=== PATIENT | male | born 1965 | race African-American/Black ===

== ENCOUNTER 2018-08-06 01:32 | Emergency (ER) | payer SELFPAY ==
[~2018-08-06] VITALS: Ht 180.3 cm; Wt 81.0 kg
[2018-08-06 03:07] LABS: BASOPHILS % 1.1 % (0.0-2.0); EOSINOPHILS % 0.5 % (0.0-5.0); HEMATOCRIT. 47.5 % (42.0-52.0); HEMOGLOBIN. 15.8 g/dL (14.0-18.0); LYMPHOCYTES % 27.6 % (20.0-50.0); MEAN CORPUSCULAR HEMOGLOBIN 31.3 pg (28.0-32.0); MEAN CORPUSCULAR VOLUME 93.7 fL (80.0-94.0); MEAN PLATELET VOLUME 8.4 fl (7.4-10.4); MONOCYTES % 8.1 % (2.0-8.0); NEUTROPHILS % 62.7 % (40.0-76.0); PLATELET 190 x1000/uL (130-400); RED BLOOD CELL COUNT 5.07 mill/uL (4.7-6.1); RED CELL DISTRIBUTION WIDTH 13.2 % (11.6-14.6)
[2018-08-06 03:14] LABS: CHLORIDE 105 mEq/L (98-107); ETHANOL BLOOD 269 mg/dL
[2018-08-06 04:15] LABS: *AMPHETAMINES SCREEN URINE NEGATIVE (NEGATIVE); *BARBITURATES SCREEN URINE NEGATIVE (NEGATIVE); *BENZODIAZEPINES SCREEN URINE NEGATIVE (NEGATIVE)
[2018-08-06 04:17] LABS: *COCAINE SCREEN URINE NEGATIVE (NEGATIVE); CANNABINOID URINE SCREEN NEGATIVE (NEGATIVE); METHADONE URINE SCREEN NEGATIVE (NEGATIVE); OPIATES URINE SCREEN NEGATIVE (NEGATIVE); PHENCYCLIDINE URINE SCREEN NEGATIVE (NEGATIVE)
[2018-08-06 05:37] VITALS: BP 131/71
== END 2018-08-06 06:03 | disposition home or self-care (01) ==
LOC: ER 01:32
DX: F10.129 Alcohol abuse with intoxication, unspecified (principal); R41.82 Altered mental status, unspecified; Y90.8 Blood alcohol level of 240 mg/100 ml or more
CPT/HCPCS: 36415; 80053; 80305; 82962; 85025; 99284; G0482

== ENCOUNTER 2023-01-08 11:26 | Inpatient (IN) | payer MEDICAID, OTHER ==
[~2023-01-08] VITALS: Ht 195.6 cm; Wt 89.4 kg
[2023-01-08] MEDS ORDERED: ALBUTEROL (0.083%) 2.5MG/3ML NEB HHN STA (11:40)
[2023-01-08] MEDS ORDERED: METHYLPREDNISOLONE SOD SUCC 125 MG/2 ML VIAL IV STA (11:40)
[2023-01-08] MEDS ORDERED: IPRATROPIUM BROMIDE (0.02%) 0.5MG/2.5ML NEB HHN STA (11:40)
[2023-01-08 12:16] LABS: BASOPHILS % 0.4 % (0.0-2.0); EOSINOPHILS % 0.4 % (0.0-5.0); LYMPHOCYTES % 29.7 % (20.0-50.0); MEAN CORPUSCULAR HEMOGLOBIN 29.7 pg (28.0-32.0); MEAN CORPUSCULAR VOLUME 91.2 fL (80.0-94.0); MEAN PLATELET VOLUME 7.9 fl (7.4-10.4); MONOCYTES % 8.5 % (2.0-8.0); PLATELET 203 x1000/uL (130-400); RED BLOOD CELL COUNT 5.38 mill/uL (4.7-6.1); RED CELL DISTRIBUTION WIDTH 14.7 % (11.6-14.6)
[2023-01-08 12:20] LABS: CHLORIDE 105 mEq/L (98-107)
[2023-01-08] MEDS ORDERED: KETOROLAC 30MG/ML VIAL IV ONE (14:00)
[2023-01-08] MEDS: METHYLPREDNISOLONE SOD SUCC 125 MG/2 ML VIAL IV SCH ×2 (14:15→20:56)
[2023-01-08] MEDS ORDERED: IPRATROPIUM/ALBUTEROL 0.5-3(2.5)MG/3ML NEB HHN PRN (14:15)
[2023-01-08 14:32] LABS: BG DEOXYHEMOGLOBIN 5.6 % (0.0-5.0); BG METHEMOGLOBIN 0.3 % (0.0-1.5); BG OXYGEN SATURATION 94.3 % (92.0-98.5); BG OXYHEMOGLOBIN 93.1 % (94.0-97.0); BG PCO2 34.3 mmHg (35.0-45.0); BG PO2 69.6 mmHg (75.0-100.0); BG SAMPLE SITE RIGHT RADIAL; BG TOTAL HEMOGLOBIN 16.1 g/dL (12.0-18.0); BG VENT MODE MASK - BIPAP
[2023-01-08] MEDS ORDERED: CEFTRIAXONE 1GM PREMIX 50 ML IV SCH (15:00)
[2023-01-08] MEDS ORDERED: AZITHROMYCIN 500 MG in DEXT 5% WATER 250 ML IV SCH (16:00)
[2023-01-08] MEDS: AZITHROMYCIN 500 MG in DEXT 5% WATER 250 ML IV SCH (16:02)
[2023-01-08 19:50] LABS: INR 1.1; PARTIAL THROMBOPLASTIN TIME 29.2 sec (23.4-31.0); PROTHROMBIN TIME 11.3 sec (9.6-11.0)
[2023-01-08] MEDS: ALBUTEROL (0.083%) 2.5MG/3ML NEB HHN SCH (20:16)
[2023-01-08] MEDS: IPRATROPIUM BROMIDE (0.02%) 0.5MG/2.5ML NEB HHN SCH (20:16)
[2023-01-08 21:00] VITALS: BP 148/101
[2023-01-08] MEDS ORDERED: DEXTROSE 50% WATER 50ML SYRINGE IV PRN (21:45)
[2023-01-08 22:01] VITALS: BP 130/98
[2023-01-08] MEDS: ACETAMINOPHEN 325MG TABLET PO PRN (23:32)
[2023-01-09] VITALS (12 sets, daily range): BP systolic 126–143; BP diastolic 87–112
[2023-01-09] MEDS: DIPHENHYDRAMINE 50MG/ML VIAL IV PRN (00:41)
[2023-01-09] MEDS: ONDANSETRON HCL 4MG/2ML INJ IV PRN ×2 (00:41→09:41)
[2023-01-09] MEDS: ALBUTEROL (0.083%) 2.5MG/3ML NEB HHN SCH ×4 (01:50→21:33)
[2023-01-09] MEDS: IPRATROPIUM BROMIDE (0.02%) 0.5MG/2.5ML NEB HHN SCH ×4 (01:50→21:32)
[2023-01-09] MEDS: METHYLPREDNISOLONE SOD SUCC 125 MG/2 ML VIAL IV SCH ×4 (01:54→21:42)
[2023-01-09 05:50] LABS: HEMATOCRIT. 44.8 % (42.0-52.0); HEMOGLOBIN. 14.6 g/dL (14.0-18.0); MEAN CORPUSCULAR HEMOGLOBIN 29.1 pg (28.0-32.0); MEAN CORPUSCULAR VOLUME 89.3 fL (80.0-94.0); MEAN PLATELET VOLUME 8.6 fl (7.4-10.4); PLATELET 213 x1000/uL (130-400); RED BLOOD CELL COUNT 5.02 mill/uL (4.7-6.1); RED CELL DISTRIBUTION WIDTH 14.1 % (11.6-14.6)
[2023-01-09 05:59] LABS: CHLORIDE 101 mEq/L (98-107)
[2023-01-09] MEDS: ACETAMINOPHEN 325MG TABLET PO PRN ×3 (06:04→16:12)
[2023-01-09] MEDS: BLOOD SUGAR DIAGNOSTIC STRIP TEST SCH ×4 (06:30→21:00)
[2023-01-09] MEDS: INSULIN LISPRO 100 UNITS/ML SUBCUT SCH ×4 (07:00→21:00)
[2023-01-09] MEDS ORDERED: SODIUM BICARBONATE 4% (2.4MEQ) 5ML VIAL IV ONE (08:05)
[2023-01-09 09:38] LABS: PLATELET ESTIMATE NORMAL
[2023-01-09] MEDS ORDERED: NALOXONE HCL 0.4MG/ML VIAL IV PRN (10:45)
[2023-01-09] MEDS: CEFTRIAXONE 1GM PREMIX 50 ML IV SCH (14:59)
[2023-01-09] MEDS: AZITHROMYCIN 500 MG in DEXT 5% WATER 250 ML IV SCH (15:43)
[2023-01-09] MEDS: MORPHINE SULFATE 2 MG/ML CPJ (NOT FOR IM USE) IV PRN ×2 (15:45→22:50)
[2023-01-10] VITALS (9 sets, daily range): BP systolic 120–145; BP diastolic 74–101
[2023-01-10] MEDS: ALBUTEROL (0.083%) 2.5MG/3ML NEB HHN SCH ×2 (02:00→19:54)
[2023-01-10] MEDS: IPRATROPIUM BROMIDE (0.02%) 0.5MG/2.5ML NEB HHN SCH ×2 (02:00→19:54)
[2023-01-10] MEDS: METHYLPREDNISOLONE SOD SUCC 125 MG/2 ML VIAL IV SCH ×4 (02:38→22:35)
[2023-01-10] MEDS: DIPHENHYDRAMINE 50MG/ML VIAL IV PRN (02:44)
[2023-01-10] MEDS: ONDANSETRON HCL 4MG/2ML INJ IV PRN (02:44)
[2023-01-10] MEDS: BLOOD SUGAR DIAGNOSTIC STRIP TEST SCH ×4 (06:30→21:00)
[2023-01-10] MEDS: INSULIN LISPRO 100 UNITS/ML SUBCUT SCH ×4 (07:00→21:00)
[2023-01-10] MEDS: IPRATROPIUM/ALBUTEROL 0.5-3(2.5)MG/3ML NEB HHN SCH ×2 (08:57→14:09)
[2023-01-10] MEDS ORDERED: LORAZEPAM 0.5MG TABLET PO PRN (14:45)
[2023-01-10] MEDS: AZITHROMYCIN 500 MG in DEXT 5% WATER 250 ML IV SCH (15:01)
[2023-01-10] MEDS: MORPHINE SULFATE 2 MG/ML CPJ (NOT FOR IM USE) IV PRN (15:16)
[2023-01-10] MEDS ORDERED: IPRATROPIUM BROMIDE (0.02%) 0.5MG/2.5ML NEB HHN PRN (16:15)
[2023-01-10] MEDS ORDERED: ALBUTEROL (0.083%) 2.5MG/3ML NEB HHN PRN (16:15)
[2023-01-10] MEDS: FAMOTIDINE 20MG TABLET PO SCH (17:47)
[2023-01-10] MEDS: CEFTRIAXONE 1GM PREMIX 50 ML IV SCH (17:47)
[2023-01-10] MEDS: MELATONIN 3MG TABLET PO SCH (21:00)
[2023-01-11] VITALS: BP 135/75
[2023-01-11] MEDS: MORPHINE SULFATE 2 MG/ML CPJ (NOT FOR IM USE) IV PRN ×2 (01:24→11:34)
[2023-01-11] MEDS: METHYLPREDNISOLONE SOD SUCC 125 MG/2 ML VIAL IV SCH ×2 (02:00→08:47)
[2023-01-11] MEDS: IPRATROPIUM BROMIDE (0.02%) 0.5MG/2.5ML NEB HHN SCH ×3 (02:06→20:56)
[2023-01-11] MEDS: ALBUTEROL (0.083%) 2.5MG/3ML NEB HHN SCH ×4 (02:06→20:56)
[2023-01-11 04:00] VITALS: BP 129/84
[2023-01-11 06:36] LABS: HEMATOCRIT. 41.3 % (42.0-52.0); HEMOGLOBIN. 13.5 g/dL (14.0-18.0); MEAN CORPUSCULAR HEMOGLOBIN 29.2 pg (28.0-32.0); MEAN CORPUSCULAR VOLUME 89.1 fL (80.0-94.0); MEAN PLATELET VOLUME 8.8 fl (7.4-10.4); PLATELET 202 x1000/uL (130-400); RED BLOOD CELL COUNT 4.63 mill/uL (4.7-6.1); RED CELL DISTRIBUTION WIDTH 13.8 % (11.6-14.6)
[2023-01-11] MEDS: INSULIN LISPRO 100 UNITS/ML SUBCUT SCH ×4 (07:10→21:34)
[2023-01-11 08:00] VITALS: BP 114/77
[2023-01-11 08:18] LABS: CHLORIDE 102 mEq/L (98-107)
[2023-01-11] MEDS: FAMOTIDINE 20MG TABLET PO SCH ×2 (08:47→17:01)
[2023-01-11] MEDS ORDERED: BENZONATATE 100MG CAPSULE PO PRN (10:00)
[2023-01-11 10:54] LABS: BG BASE EXCESS 1.8 mmol/L (-2.0-2.0); BG CARBOXYHEMOGLOBIN 0.8 % (0.5-1.5); BG HCO3 ACT 25.6 mmol/L (22.0-26.0); BG METHEMOGLOBIN 0.1 % (0.0-1.5); BG OXYGEN SATURATION 88.9 % (92.0-98.5); BG OXYHEMOGLOBIN 88.1 % (94.0-97.0); BG PCO2 37.8 mmHg (35.0-45.0); BG PH 7.449 (7.350-7.450); BG SAMPLE SITE RIGHT RADIAL; BG TOTAL HEMOGLOBIN 15.4 g/dL (12.0-18.0); BG VENT MODE ROOM AIR
[2023-01-11] MEDS: LIDOCAINE 5% PATCH TOP SCH (11:34)
[2023-01-11] MEDS: BLOOD SUGAR DIAGNOSTIC STRIP TEST SCH ×3 (11:58→21:34)
[2023-01-11 12:00] VITALS: BP 141/94
[2023-01-11 13:11] LABS: PLATELET ESTIMATE NORMAL
[2023-01-11] MEDS: METHYLPREDNISOLONE SOD SUCC 40 MG/ML VIAL IV SCH ×2 (14:44→21:28)
[2023-01-11 16:00] VITALS: BP 136/87
[2023-01-11] MEDS: CEFTRIAXONE 1GM PREMIX 50 ML IV SCH (16:02)
[2023-01-11] MEDS: AZITHROMYCIN 500 MG in DEXT 5% WATER 250 ML IV SCH (17:00)
[2023-01-11 20:00] VITALS: BP 152/93
[2023-01-11] MEDS: GUAIFENESIN 600MG ER TABLET PO SCH (21:28)
[2023-01-11] MEDS: MELATONIN 3MG TABLET PO SCH (21:28)
[2023-01-12] VITALS (7 sets, daily range): BP systolic 122–153; BP diastolic 83–105
[2023-01-12] MEDS: ALBUTEROL (0.083%) 2.5MG/3ML NEB HHN SCH ×3 (02:01→14:19)
[2023-01-12] MEDS: IPRATROPIUM BROMIDE (0.02%) 0.5MG/2.5ML NEB HHN SCH ×3 (02:03→14:19)
[2023-01-12 05:42] LABS: HEMATOCRIT. 42.7 % (42.0-52.0); MEAN CORPUSCULAR HEMOGLOBIN 29.2 pg (28.0-32.0); MEAN CORPUSCULAR VOLUME 89.3 fL (80.0-94.0); MEAN PLATELET VOLUME 8.6 fl (7.4-10.4); PLATELET 213 x1000/uL (130-400); RED BLOOD CELL COUNT 4.79 mill/uL (4.7-6.1); RED CELL DISTRIBUTION WIDTH 14.1 % (11.6-14.6)
[2023-01-12] MEDS: BLOOD SUGAR DIAGNOSTIC STRIP TEST SCH ×4 (05:46→21:10)
[2023-01-12] MEDS: METHYLPREDNISOLONE SOD SUCC 40 MG/ML VIAL IV SCH ×3 (06:08→23:22)
[2023-01-12] MEDS: INSULIN LISPRO 100 UNITS/ML SUBCUT SCH ×4 (06:09→22:02)
[2023-01-12 06:45] LABS: CHLORIDE 101 mEq/L (98-107)
[2023-01-12] MEDS: FAMOTIDINE 20MG TABLET PO SCH ×2 (09:59→18:29)
[2023-01-12] MEDS: GUAIFENESIN 600MG ER TABLET PO SCH ×2 (09:59→21:34)
[2023-01-12] MEDS: LIDOCAINE 5% PATCH TOP SCH (10:05)
[2023-01-12] MEDS ORDERED: IPRATROPIUM/ALBUTEROL 0.5-3(2.5)MG/3ML NEB HHN PRN (13:00)
[2023-01-12 13:24] LABS: PLATELET ESTIMATE NORMAL
[2023-01-12] MEDS: CEFTRIAXONE 1GM PREMIX 50 ML IV SCH (15:11)
[2023-01-12] MEDS: AZITHROMYCIN 500 MG in DEXT 5% WATER 250 ML IV SCH (18:30)
[2023-01-12] MEDS: IPRATROPIUM/ALBUTEROL 0.5-3(2.5)MG/3ML NEB HHN SCH (21:09)
[2023-01-12] MEDS: MELATONIN 3MG TABLET PO SCH (21:34)
[2023-01-12] MEDS: MORPHINE SULFATE 2 MG/ML CPJ (NOT FOR IM USE) IV PRN (21:36)
[2023-01-12] MEDS: CLONIDINE 0.1MG TABLET PO PRN (21:37)
[2023-01-13] VITALS: BP 131/96
[2023-01-13] MEDS: IPRATROPIUM/ALBUTEROL 0.5-3(2.5)MG/3ML NEB HHN SCH ×4 (01:31→20:24)
[2023-01-13 04:00] VITALS: BP 141/96
[2023-01-13] MEDS: CLONIDINE 0.1MG TABLET PO PRN (04:51)
[2023-01-13] MEDS: MORPHINE SULFATE 2 MG/ML CPJ (NOT FOR IM USE) IV PRN ×2 (04:53→15:47)
[2023-01-13] MEDS: BLOOD SUGAR DIAGNOSTIC STRIP TEST SCH ×4 (06:48→21:00)
[2023-01-13] MEDS: INSULIN LISPRO 100 UNITS/ML SUBCUT SCH ×3 (06:49→20:58)
[2023-01-13] MEDS: METHYLPREDNISOLONE SOD SUCC 40 MG/ML VIAL IV SCH ×2 (06:57→15:40)
[2023-01-13 08:00] VITALS: BP 136/101
[2023-01-13] MEDS: GUAIFENESIN 600MG ER TABLET PO SCH ×2 (11:21→21:00)
[2023-01-13] MEDS: FAMOTIDINE 20MG TABLET PO SCH ×2 (11:22→17:00)
[2023-01-13] MEDS: LIDOCAINE 5% PATCH TOP SCH (11:25)
[2023-01-13 12:00] VITALS: BP 143/98
[2023-01-13] MEDS: CEFTRIAXONE 1GM PREMIX 50 ML IV SCH (15:40)
[2023-01-13 16:00] VITALS: BP 132/89
[2023-01-13 20:00] VITALS: BP 134/104
[2023-01-13] MEDS: MELATONIN 3MG TABLET PO SCH (21:00)
[2023-01-14] VITALS (11 sets, daily range): BP systolic 82–155; BP diastolic 62–111
[2023-01-14] MEDS: IPRATROPIUM/ALBUTEROL 0.5-3(2.5)MG/3ML NEB HHN SCH ×3 (01:31→21:14)
[2023-01-14] MEDS: BLOOD SUGAR DIAGNOSTIC STRIP TEST SCH ×2 (06:04→21:52)
[2023-01-14] MEDS: INSULIN LISPRO 100 UNITS/ML SUBCUT SCH ×2 (06:25→21:55)
[2023-01-14 06:53] LABS: HEMATOCRIT. 45.1 % (42.0-52.0); HEMOGLOBIN. 14.6 g/dL (14.0-18.0); MEAN CORPUSCULAR VOLUME 89.8 fL (80.0-94.0); MEAN PLATELET VOLUME 8.3 fl (7.4-10.4); PLATELET 224 x1000/uL (130-400); RED BLOOD CELL COUNT 5.02 mill/uL (4.7-6.1); RED CELL DISTRIBUTION WIDTH 14.1 % (11.6-14.6)
[2023-01-14 07:01] LABS: PROTHROMBIN TIME 11.2 sec (9.6-11.0)
[2023-01-14] MEDS ORDERED: BUPIVACAINE HCL/PF 0.25% (2.5MG/ML) 10ML ONE (07:43)
[2023-01-14] MEDS ORDERED: POLYMYXIN B SULFATE 500000 UNITS/VIAL ONE (07:44)
[2023-01-14] MEDS ORDERED: SKIN ADHESIVE 0.7 GM EA TOP ONE (07:46)
[2023-01-14] MEDS ORDERED: TALC 3 GM VIAL IX SCH (08:00)
[2023-01-14] MEDS: LIDOCAINE 5% PATCH TOP SCH (09:00)
[2023-01-14] MEDS: PREDNISONE 20MG TABLET PO SCH (09:00)
[2023-01-14] MEDS: GUAIFENESIN 600MG ER TABLET PO SCH ×2 (09:00→21:52)
[2023-01-14] MEDS: FAMOTIDINE 20MG TABLET PO SCH ×2 (09:00→21:53)
[2023-01-14] MEDS ORDERED: PROPOFOL 200MG/20ML VIAL IV ONE (09:11)
[2023-01-14] MEDS ORDERED: SUCCINYLCHOLINE CHLORIDE 200MG/10ML IV ONE (09:11)
[2023-01-14] MEDS ORDERED: DEXAMETHASONE 4MG/ML 1ML VIAL ONE (09:11)
[2023-01-14] MEDS ORDERED: NEOSTIGMINE METHYLSULFATE 1MG/ML 10 ML VIAL ONE ×2 (09:11→10:44)
[2023-01-14] MEDS ORDERED: ONDANSETRON HCL 4MG/2ML INJ ONE (09:11)
[2023-01-14] MEDS ORDERED: ROCURONIUM BROMIDE 10MG/ML VIAL 5ML IV ONE ×2 (09:11→10:12)
[2023-01-14] MEDS ORDERED: GLYCOPYRROLATE 0.2 MG/ML 2ML VIAL ONE ×3 (09:12→10:44)
[2023-01-14] MEDS ORDERED: FENTANYL CITRATE/PF 50MCG/ML 2ML VIAL ONE (09:12)
[2023-01-14] MEDS ORDERED: MIDAZOLAM HCL 2 MG/2 ML VIAL ONE (09:12)
[2023-01-14 09:21] LABS: CHLORIDE 100 mEq/L (98-107)
[2023-01-14 09:36] LABS: PHOSPHORUS 2.6 mg/dL (2.5-4.9)
[2023-01-14] MEDS ORDERED: HYDROMORPHONE HCL/PF 2MG/ML CPJ ONE (10:30)
[2023-01-14] MEDS ORDERED: MEPERIDINE HCL/PF 25MG/ML CPJ IV PRN (11:15)
[2023-01-14] MEDS ORDERED: ONDANSETRON HCL 4MG/2ML INJ IV PRN (11:15)
[2023-01-14] MEDS ORDERED: LABETALOL 5MG/ML SYR 20 MG/4 ML SYRINGE IV PRN (11:15)
[2023-01-14 11:41] LABS: BG CARBOXYHEMOGLOBIN 0.9 % (0.5-1.5); BG DEOXYHEMOGLOBIN 2.8 % (0.0-5.0); BG FRACTION INSPIRED OXYGEN 100; BG HCO3 ACT 26.4 mmol/L (22.0-26.0); BG METHEMOGLOBIN 0.4 % (0.0-1.5); BG OXYGEN SATURATION 97.2 % (92.0-98.5); BG OXYHEMOGLOBIN 95.9 % (94.0-97.0); BG PCO2 44.9 mmHg (35.0-45.0); BG PH 7.388 (7.350-7.450); BG SAMPLE SITE RIGHT RADIAL; BG TOTAL HEMOGLOBIN 16.7 g/dL (12.0-18.0); BG VENT MODE MASK - NRB
[2023-01-14] MEDS: HYDROMORPHONE HCL/PF 2MG/ML CPJ IV PRN ×3 (12:06→19:05)
[2023-01-14 12:27] LABS: HEMATOCRIT 50.1 % (42.0-52.0); HEMOGLOBIN 16.5 g/dL (14.0-18.0)
[2023-01-14] MEDS: CLONIDINE 0.1MG TABLET PO PRN (17:39)
[2023-01-14 19:00] LABS: PLATELET ESTIMATE NORMAL
[2023-01-14] MEDS: MELATONIN 3MG TABLET PO SCH (21:52)
[2023-01-14] MEDS: MORPHINE SULFATE 4 MG/ML CPJ (NOT FOR IM USE) IV PRN (22:58)
[2023-01-15] VITALS (48 sets, daily range): BP systolic 120–154; BP diastolic 42–106
[2023-01-15] MEDS: IPRATROPIUM/ALBUTEROL 0.5-3(2.5)MG/3ML NEB HHN SCH ×4 (01:38→20:58)
[2023-01-15] MEDS: MORPHINE SULFATE 4 MG/ML CPJ (NOT FOR IM USE) IV PRN ×6 (01:44→23:40)
[2023-01-15 05:38] LABS: HEMOGLOBIN. 15.8 g/dL (14.0-18.0); MEAN CORPUSCULAR HEMOGLOBIN 29.8 pg (28.0-32.0); MEAN CORPUSCULAR VOLUME 90.3 fL (80.0-94.0); MEAN PLATELET VOLUME 7.8 fl (7.4-10.4); PLATELET 225 x1000/uL (130-400); RED BLOOD CELL COUNT 5.32 mill/uL (4.7-6.1); RED CELL DISTRIBUTION WIDTH 14.3 % (11.6-14.6)
[2023-01-15 05:45] LABS: CHLORIDE 97 mEq/L (98-107)
[2023-01-15 07:21] LABS: PLATELET ESTIMATE NORMAL
[2023-01-15 08:09] LABS: BG BASE EXCESS 4.2 mmol/L (-2.0-2.0); BG CARBOXYHEMOGLOBIN 1.3 % (0.5-1.5); BG DEOXYHEMOGLOBIN 2.2 % (0.0-5.0); BG FRACTION INSPIRED OXYGEN 28; BG HCO3 ACT 29.8 mmol/L (22.0-26.0); BG METHEMOGLOBIN 0.3 % (0.0-1.5); BG OXYGEN SATURATION 97.8 % (92.0-98.5); BG OXYHEMOGLOBIN 96.2 % (94.0-97.0); BG PCO2 47.4 mmHg (35.0-45.0); BG PH 7.416 (7.350-7.450); BG PO2 97.2 mmHg (75.0-100.0); BG SAMPLE SITE RIGHT BRACHIAL; BG TOTAL HEMOGLOBIN 16.9 g/dL (12.0-18.0); BG VENT MODE NASAL CANNULA
[2023-01-15] MEDS: INSULIN LISPRO 100 UNITS/ML SUBCUT SCH ×4 (08:20→21:00)
[2023-01-15] MEDS: BLOOD SUGAR DIAGNOSTIC STRIP TEST SCH ×4 (08:37→20:21)
[2023-01-15] MEDS: GUAIFENESIN 600MG ER TABLET PO SCH ×2 (08:46→20:25)
[2023-01-15] MEDS: FAMOTIDINE 20MG TABLET PO SCH ×2 (08:46→18:05)
[2023-01-15] MEDS: PREDNISONE 20MG TABLET PO SCH (08:46)
[2023-01-15] MEDS: LIDOCAINE 5% PATCH TOP SCH (08:49)
[2023-01-15] MEDS ORDERED: NALOXONE HCL 0.4MG/ML VIAL IV PRN (10:45)
[2023-01-15] MEDS: MELATONIN 3MG TABLET PO SCH (20:29)
[2023-01-16] VITALS (36 sets, daily range): BP systolic 113–154; BP diastolic 78–113
[2023-01-16] MEDS: IPRATROPIUM/ALBUTEROL 0.5-3(2.5)MG/3ML NEB HHN SCH ×4 (02:07→20:55)
[2023-01-16] MEDS: DIPHENHYDRAMINE 50MG/ML VIAL IV PRN (02:21)
[2023-01-16] MEDS: MORPHINE SULFATE 4 MG/ML CPJ (NOT FOR IM USE) IV PRN ×3 (05:12→23:32)
[2023-01-16] MEDS: ACETAMINOPHEN 325MG TABLET PO PRN ×2 (05:12→21:04)
[2023-01-16 06:08] LABS: HEMATOCRIT. 44.2 % (42.0-52.0); HEMOGLOBIN. 14.5 g/dL (14.0-18.0); MEAN CORPUSCULAR HEMOGLOBIN 29.5 pg (28.0-32.0); MEAN CORPUSCULAR VOLUME 89.7 fL (80.0-94.0); MEAN PLATELET VOLUME 7.6 fl (7.4-10.4); PLATELET 225 x1000/uL (130-400); RED BLOOD CELL COUNT 4.92 mill/uL (4.7-6.1); RED CELL DISTRIBUTION WIDTH 14.2 % (11.6-14.6)
[2023-01-16 06:28] LABS: CHLORIDE 97 mEq/L (98-107)
[2023-01-16] MEDS: INSULIN LISPRO 100 UNITS/ML SUBCUT SCH ×4 (08:02→21:41)
[2023-01-16] MEDS: BLOOD SUGAR DIAGNOSTIC STRIP TEST SCH ×4 (08:02→21:04)
[2023-01-16] MEDS: PREDNISONE 20MG TABLET PO SCH (08:03)
[2023-01-16] MEDS: FAMOTIDINE 20MG TABLET PO SCH ×2 (08:03→17:15)
[2023-01-16] MEDS: LIDOCAINE 5% PATCH TOP SCH (08:03)
[2023-01-16] MEDS: GUAIFENESIN 600MG ER TABLET PO SCH ×2 (08:03→20:35)
[2023-01-16 13:00] LABS: PLATELET ESTIMATE NORMAL
[2023-01-16] MEDS: MELATONIN 3MG TABLET PO SCH (21:39)
[2023-01-17] VITALS (12 sets, daily range): BP systolic 123–163; BP diastolic 81–107
[2023-01-17] MEDS: IPRATROPIUM/ALBUTEROL 0.5-3(2.5)MG/3ML NEB HHN SCH ×4 (02:31→20:55)
[2023-01-17] MEDS: MORPHINE SULFATE 4 MG/ML CPJ (NOT FOR IM USE) IV PRN ×2 (05:39→20:59)
[2023-01-17] MEDS: BLOOD SUGAR DIAGNOSTIC STRIP TEST SCH ×4 (07:52→21:00)
[2023-01-17] MEDS: INSULIN LISPRO 100 UNITS/ML SUBCUT SCH ×4 (07:52→21:00)
[2023-01-17] MEDS: FAMOTIDINE 20MG TABLET PO SCH ×3 (09:36→17:40)
[2023-01-17] MEDS: GUAIFENESIN 600MG ER TABLET PO SCH ×2 (09:36→21:59)
[2023-01-17] MEDS: PREDNISONE 20MG TABLET PO SCH (09:36)
[2023-01-17] MEDS: LIDOCAINE 5% PATCH TOP SCH (09:37)
[2023-01-17] MEDS ORDERED: DOCUSATE SODIUM 250MG CAPSULE PO PRN (10:30)
[2023-01-17 12:20] LABS: HEMATOCRIT. 40.4 % (42.0-52.0); HEMOGLOBIN. 13.2 g/dL (14.0-18.0); MEAN CORPUSCULAR HEMOGLOBIN 29.1 pg (28.0-32.0); MEAN PLATELET VOLUME 7.4 fl (7.4-10.4); PLATELET 215 x1000/uL (130-400); RED BLOOD CELL COUNT 4.53 mill/uL (4.7-6.1); RED CELL DISTRIBUTION WIDTH 14.3 % (11.6-14.6)
[2023-01-17 12:36] LABS: CHLORIDE 98 mEq/L (98-107)
[2023-01-17] MEDS ORDERED: DOCUSATE SODIUM 100MG CAPSULE PO PRN (12:45)
[2023-01-17 12:53] LABS: PLATELET ESTIMATE NORMAL
[2023-01-17] MEDS: DIPHENHYDRAMINE 50MG/ML VIAL IV PRN (12:56)
[2023-01-17] MEDS: MELATONIN 3MG TABLET PO SCH (21:59)
[2023-01-18] VITALS (11 sets, daily range): BP systolic 128–165; BP diastolic 83–100
[2023-01-18] MEDS: INSULIN LISPRO 100 UNITS/ML SUBCUT SCH ×2 (08:00→12:05)
[2023-01-18] MEDS: BLOOD SUGAR DIAGNOSTIC STRIP TEST SCH ×2 (08:25→11:22)
[2023-01-18] MEDS: GUAIFENESIN 600MG ER TABLET PO SCH (08:36)
[2023-01-18] MEDS: FAMOTIDINE 20MG TABLET PO SCH ×2 (08:36→16:58)
[2023-01-18] MEDS: PREDNISONE 20MG TABLET PO SCH (08:36)
[2023-01-18] MEDS: LIDOCAINE 5% PATCH TOP SCH (08:37)
[2023-01-18] MEDS: MORPHINE SULFATE 4 MG/ML CPJ (NOT FOR IM USE) IV PRN (11:43)
[2023-01-20] MEDS ORDERED: HYDR50TA MT (04:56)
[2023-01-20] MEDS ORDERED: FAMO-135 MT (04:59)
[2023-01-20] MEDS ORDERED: lasix (04:59)
[2023-01-20] MEDS ORDERED: losartan (04:59)
== END 2023-01-18 19:40 | disposition home health service (06) | DRG 720 ==
LOC: ER 11:26 → EDBEDREQ 12:42 → EDBEDREQSVC 12:42 → EDBEDREQTM 12:42 → EDBEDREQ 12:43 → MICUNO 13:58 → EDBEDREQTM 14:01 → EDBEDREQSVC 14:01 → ENRESERV 20:21 → 7EST 01-10 14:14 → CVICU 01-14 19:50 → 5EST 01-16 16:58
PROVIDERS: ADMIT Internal Medicine; ATTEND Internal Medicine
PROC: 5A09357 Assistance with Respiratory Ventilation, Less than 24 Consecutive Hours, Continuous Positive Airway Pressure (ICD-10-PCS; 2023-01-08)
PROC: 0W9B3ZX Drainage of Left Pleural Cavity, Percutaneous Approach, Diagnostic (ICD-10-PCS; principal; 2023-01-14)
PROC: 0W9B30Z Drainage of Left Pleural Cavity with Drainage Device, Percutaneous Approach (ICD-10-PCS; 2023-01-14)
PROC: 3E0T3BZ Introduction of Anesthetic Agent into Peripheral Nerves and Plexi, Percutaneous Approach (ICD-10-PCS; 2023-01-14)
DX: A41.9 Sepsis, unspecified organism (principal); J96.01 Acute respiratory failure with hypoxia; E44.0 Moderate protein-calorie malnutrition; J91.8 Pleural effusion in other conditions classified elsewhere; J18.9 Pneumonia, unspecified organism; J91.0 Malignant pleural effusion; J45.909 Unspecified asthma, uncomplicated; Z20.822 Contact with and (suspected) exposure to COVID-19; F17.210 Nicotine dependence, cigarettes, uncomplicated; I10 Essential (primary) hypertension; R74.01 Elevation of levels of liver transaminase levels; Z68.23 Body mass index [BMI] 23.0-23.9, adult; Z59.00 Homelessness unspecified; Z85.118 Personal history of other malignant neoplasm of bronchus and lung
CPT/HCPCS: 32555; 36415; 36600; 71045; 71250; 80048; 80053; 82375; 82805; 82962; 83036; 83615; 83735; 83880; 83986; 84100; 84145; 84484; 85014; 85018; 85025; 86850; 86900; 87426; 88108; 93005; 93970; 94640; 94644; 94660; 99291; C1893; C9803; J0330; J0456; J0696; J1100; J1170; J1200; J1815; J1885; J2250; J2270; J2405; J2704; J2710; J2920; J2930; J3010; J3490; J7060; J7512; A4315

== ENCOUNTER 2023-01-19 00:04 | Emergency (ER) | payer MEDICAID, OTHER ==
[~2023-01-19] VITALS: Ht 195.6 cm; Wt 82.1 kg
[2023-01-19 00:15] VITALS: BP 151/107
[2023-01-20] MEDS ORDERED: HYDR50TA MT (04:56)
[2023-01-20] MEDS ORDERED: losartan (04:59)
[2023-01-20] MEDS ORDERED: lasix (04:59)
[2023-01-20] MEDS ORDERED: FAMO-135 MT (04:59)
[2023-01-23] MEDS ORDERED: LOSA50TA3 PO (12:18)
[2023-01-23] MEDS ORDERED: IPRA3AMP9 NEB (12:18)
[2023-01-23] MEDS ORDERED: FLUT1DIS3 INH (12:18)
[2023-01-23] MEDS ORDERED: GUAI600T44 PO (12:18)
[2023-01-23] MEDS ORDERED: ALBU18HF2 IH (12:18)
[2023-01-23] MEDS ORDERED: DOCU250C14 MT (12:18)
[2023-01-27] MEDS ORDERED: HYDR-4001 MT (11:42)
[2023-01-27] MEDS ORDERED: GUAI600T26 MT (17:22)
[2023-01-27] MEDS ORDERED: TUSSL MT (17:22)
[2023-01-27] MEDS ORDERED: LACT10SO3 MT (17:22)
== END 2023-01-19 03:57 | disposition home or self-care (01) ==
LOC: ER 00:13
DX: Z48.00 Encounter for change or removal of nonsurgical wound dressing (principal)
CPT/HCPCS: 71045; 99283